=== PATIENT | male | born 1960 | race Two or more races ===

== ENCOUNTER → 2021-08-31 | Outpatient (CLI) | payer OTHER ==
[2016-03-28 20:00] VITALS: BP 150/80
[~2021-08-31] MED LIST: ONDA4TAB7 PO; OXYC1TAB15 PO
--- NOTE | 2021-08-31 12:12 | RAD ---
EXAM: Renal sonogram. HISTORY: Nephrolithiasis. TECHNIQUE: Sonographic imaging the kidneys and bladder was performed. COMPARISON: None. FINDINGS: The kidneys are normal in size. There is no solid renal lesion. There is a 1.7 cm simple ap pearing cyst within the mid zone of the left kidney. There is no hydronephrosis. There is no convinci ng nephrolithiasis. The bladder is unremarkable. The prostate is prominent in size, measuring 5.2 cm in maximum dimension with a volume of 37 cc. IMPRESSION: 1. 1.7 cm simple appearing left renal cyst. Follow-up is not routinely performed for simple cysts. 2. No acute sonographic finding. Electronically signed by: Dorinda Quevedo MD (08/31/2021 12:09 PM) [id number]
== END ==
LOC: US 10:57
PROVIDERS: ATTEND Internal Medicine
DX: N28.1 Cyst of kidney, acquired (principal); N20.0 Calculus of kidney
CPT/HCPCS: 76770